=== PATIENT | female | born 1970 | race Caucasian/White ===

== ENCOUNTER 2018-11-28 07:16 | Inpatient (IN) ==
--- NOTE | 2018-11-28 07:45 | History & Physical Report ---
Date of Encounter: 11/28/18 Time of Encounter: 07:44 24 Hour HP Update - Instructions Instructions: If the History and Physical is less than 30 days old and was completed prior to A.M. admission and or procedure and has NOT been updated on calendar day of procedure please complete this update prior to performing procedure. - Update Patient reports changes in Medical Condition: No Changes in examination, assessment, or condition: No Changes in Medication: No Preop tests/diagnostics Reviewed: Yes Surgery Remains Indicated: Yes Consent for Planned Operative Procedure(s) Verified: Yes - Pre-Operative Checklist Preoperative Checklist Indicated: No Prophylactic Antibiotic Ordered: Yes Is VTE Prophylaxis Indicated?: Yes
[2018-11-28] MEDS ORDERED: Ondansetron 4 MG/2 ML VIAL ONE (08:06)
[2018-11-28] MEDS ORDERED: Lidocaine -MPF 2% 2 ML VIAL ONE (08:06)
[2018-11-28] MEDS ORDERED: Dexamethasone 4 MG/ML VIAL ONE ×2 (08:06→09:24)
[2018-11-28] MEDS ORDERED: *HR* Propofol 200 MG/20 ML VIAL IVP ONE ×2 (08:06→09:41)
[2018-11-28] MEDS ORDERED: *HR* FentaNYL (PF) 100 MCG/2 ML VIAL ONE ×3 (08:06→09:45)
[2018-11-28] MEDS ORDERED: *HR* Midazolam HCl 2 MG/2 ML VIAL ONE (08:06)
[2018-11-28] MEDS ORDERED: ROPIVACAINE/PF/NS SYRINGE INTRAART ONE (08:24)
[2018-11-28] MEDS ORDERED: Hydrocortisone Sodium Succ 100 MG/2 ML VIAL IVP ONE (08:26)
[2018-11-28] MEDS ORDERED: diazePAM 5 MG TABLET PO ONE ×2 (08:26→08:45)
[2018-11-28] MEDS ORDERED: traMADol 50 MG TABLET PO ONE (08:27)
[2018-11-28] MEDS ORDERED: *HR* OxyCODONE Immed Rel 5 MG TABLET PO ONE (08:28)
[2018-11-28] MEDS ORDERED: Ethanol\\Acetic Acid\\Na Ace\\Ben 1,000 ML IRRIG.SOLN IR ONE ×2 (08:34→08:39)
[2018-11-28] MEDS ORDERED: Albuterol 2.5 MG/3 ML NEBULIZER IH ONE (08:35)
[2018-11-28] MEDS ORDERED: Clindamycin 900 MG/50 ML 900 MG/50 ML IV.SOLN IVPB ONE (08:35)
--- NOTE | 2018-11-28 08:35 | Anesthesia Evaluation PreOp ---
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 08/24/17 [Rx] Calcium Carbonate/Vitamin D3 [Calcium 500 mg Chewable Tablet] 2 tab PO DAILY 08/24/17 [History] Folic Acid 1 mg PO DAILY 08/24/17 [History] Gabapentin [Neurontin] 800 mg PO TID 08/24/17 [History] Hydroxychloroquine [Plaquenuil] 200 mg PO BID 08/24/17 [History] Lansoprazole [Prevacid] 30 mg PO DAILY 08/24/17 [History] Naproxen 500 mg PO BID 08/24/17 [History] OxyCODONE/APAP 10/325 [Percocet 10/325 MG] 1 each PO Q6HR PRN 7 Days #28 tablet 08/24/17 [Rx] Oxycodone HCl/Acetaminophen [Percocet 10-325 mg Tablet] 1 tab PO Q6H PRN 08/24/17 [History] Sulfasalazine [Azulfidine] 500 mg PO TID 08/24/17 [History] Tizanidine HCl 4 mg PO TID PRN 08/24/17 [History] Vitamin E 1,000 unit PO DAILY 08/24/17 [History] Allergy/AdvReac Type Severity Reaction Status Date / Time abatacept [From Orencia] Allergy Nausea Verified 08/24/17 12:24 cephalexin Allergy Hives Verified 08/24/17 12:24 ibuprofen Allergy Vomiting Verified 08/24/17 12:24 nalbuphine [From Nubain] Allergy Nausea Verified 08/24/17 12:24 Penicillins Allergy Hives Verified 08/24/17 12:24 codeine AdvReac Vomiting Verified 08/24/17 12:24 - Meds/Allergy Pre-op Review Medications Reviewed: Yes Allergies Reviewed: Yes Beta Blockers on Current Med List: No Anesthesia Results - Labs Laboratory Tests 11/23/18 11/23/18 11/23/18 13:38 13:38 13:38 WBC 7.3 Hgb 12.0 Hct 37.2 Plt Count 310 PT 10.6 INR 0.9 APTT 41.2 H Sodium 137 Potassium 3.8 Chloride 105 Carbon Dioxide 28 BUN 7 Creatinine 0.52 L Est GFR ( Amer) > 60 Est GFR (Non-Af Amer) > 60 BUN/Creatinine Ratio 13 Glucose 78 Calculated Osmolality 281 Calcium 9.1 Serum , Qual 11/23/18 13:52 WBC Hgb Hct Plt Count PT INR APTT Sodium Potassium Chloride Carbon Dioxide BUN Creatinine Est GFR ( Amer) Est GFR (Non-Af Amer) BUN/Creatinine Ratio Glucose Calculated Osmolality Calcium Serum , Qual Negative Anesthesia Exam Last Vital Signs Temp 98.4 F 11/28/18 08:09 Pulse 105 11/28/18 08:09 Resp 18 11/28/18 08:09 BP 123/76 11/28/18 08:09 Pulse Ox 97 11/28/18 08:09 Weight: 102 kg NPO (# of Hours): > 8 hrs - HEENT Pupil (Motor): Pupils equal, EOMI Mallampati: III Teeth: Normal Oral Opening: Greater than 3 - BOOK REPAIRER LOC: Oriented - Cardiac Rhythm: Regular Murmur: None - Pulmonary Breath Sounds: bilateral Clear Respiratory Effort: Symmetrical Anesthesia Assess/Plan ASA Score: 3 Level of consciousness: Cooperative Anesthetic Plan: General, Regional Nerve Block Regional Nerve Block Plan: Adductor canal Reason for No Neuroaxial/Regional Block: Patient refusal (also patient with elevated PTT) Monitoring Plan: Standard Monitors Recovery Plan: PACU
[2018-11-28] MEDS ORDERED: *HR* OxyCODONE Immed Rel 5 MG TABLET ONE (08:44)
[2018-11-28] MEDS ORDERED: Hydrocortisone Sodium Succ 100 MG/2 ML VIAL ONE (08:45)
[2018-11-28] MEDS ORDERED: Ringers Solution, Lactated 1,000 ML IVC SCH (08:45)
[2018-11-28] MEDS ORDERED: traMADol 50 MG TABLET ONE (08:45)
[2018-11-28] MEDS ORDERED: Tranexamic Acid 1,000 MG/10 ML VIAL ONE (09:05)
[2018-11-28] MEDS ORDERED: *HR* Succinylcholine 200 MG/10 ML VIAL IVP ONE (09:06)
[2018-11-28] MEDS ORDERED: Lidocaine -MPF 4% 5 ML AMPUL ONE (09:07)
[2018-11-28] MEDS ORDERED: Ropivacaine/PF 0.5% 24.62 ML, EPINEPHrine 0.25 MG, Ketorolac 15 MG, Water for inj. (ste... IR ONE ×2 (09:20)
--- NOTE | 2018-11-28 10:54 | Orthopedic Operative Note ---
Date of procedure: 11/28/18 Pre-op diagnosis: Bilateral knee arthritis Post-op diagnosis: same Procedure: Procedure: Bilateral robotic-assisted Total knee replacement Estimated blood loss: 800 cc Hardware: Metal and polyethylene replacement. Barre Femur: 3 Tibia: 3 TS insert: 9 Patella: 33 Exam Under anesthesia: Left knee 14 degree flexion contracture 7 degree varus right knee 11 degree flexion contracture 5 degree varus as calculated by the robot full flexion and no instability Procedural Notes: Grade 3 arthritic changes all 3 compartments. Hypertrophic synovium bilateral Operative procedure: The patient was brought to the operating room and placed on the operating room table. After general anesthesia was administered the operative knee was examined. Findings were noted in the exam under anesthesia. The operative extremity was prepped and draped in sterile surgical fashion. The patient received IV antibiotics prior to skin incision. Surgery began with the left knee followed by the right knee. Any differences will be highlighted. A standard midline incision was made centered over the patella. The incision was made through the skin and subcutaneous tissue. A medial parapatellar tendon approach was performed. Care was taken to preserve tissue along the medial aspect of the patella. And to protect the patella tendon. The deep MCL was released off the medial tibia. The infra patella fat pad was excised. The patella was everted and cut was made at the level of the insertion of the quadriceps and patella tendon. The patella was sized the guide was seated and the lug holes are drilled. Knee was brought into flexion. Patient noted to have patient noted to have grade 3 arthritic changes all 3 compartments and hypertrophic synovium bilaterally. Steinmann pins were placed in the tibia and the femur for the tibial and femoral arrays respectively. Checkpoints were also placed in the tibia and the femur for calculation purposes. The knee including the femur and the tibial registered. Osteophytes, ACL and PCL were excised at this point. Extension and flexion were assessed with a valgus stress components were adjusted on the computer to balance the knee. Femoral cuts were made first with robotic assistance, these included the anterior cut posterior cuts chamfer cuts. Tibial cut was then performed with robotic assistance as well. Bone fragments were removed, as well as the medial and lateral meniscus. The size 3 femoral guide was seated box cut was made lug holes are drilled. The size 3 tibial tray was seated and prepared with the fin cutter. Trial reduction with the 9 TS Leonora revealed extension of 0 degree and 1 degree varus right knee 3 degrees varus left knee full flexion. No varus valgus instability. Trial reduction revealed excellent patella tracking. All trial components were removed all bony surfaces were irrigated. The Tibia was seated followed by the femur, The selected Leonora size was seated and secured patella. Patient had similar findings for motion and stability. The knee was closed by the PA. The knee was then irrigated out with 2 L of pulse irrigation. The extensor mechanism was closed with #2 FiberWire suture and #2 PDS suture. The subcutaneous tissue was then irrigated and closed deep with #1 PDS suture superficially with 0 PDS suture and skin was closed with zip tie The patient was then placed in a sterile dressing and a postoperative brace extubated and transferred to recovery room in stable condition. Anesthesia: GETA Surgeon: Herbert Deutsch Was there an catering administrative assistant present: Yes Hydro Operator: Evelina Gray Estimated blood loss (cc): 800 Condition: stable Disposition: PACU
[2018-11-28] MEDS ORDERED: *HR* HYDROMORPHONE 2 MG/ML VIAL ONE (11:07)
[2018-11-28] MEDS ORDERED: *HR* OxyCODONE Immed Rel 5 MG TABLET PO PRN ×2 (12:04→12:50)
[2018-11-28] MEDS ORDERED: *HR* FentaNYL (PF) 100 MCG/2 ML VIAL IVP PRN ×2 (12:04→12:50)
[2018-11-28] MEDS ORDERED: *HR* Promethazine 25 MG/ML VIAL IVP PRN (12:04)
[2018-11-28 12:06] LABS: Hematocrit 33.8 % (35.3-44.9); Hemoglobin 11.1 g/dL (11.5-15.4)
--- NOTE | 2018-11-28 12:15 | Anesthesia Evaluation Post Op ---
Date of Encounter: 11/28/18 Time of Encounter: 12:15 - Vital Signs Vital Signs: Last Vital Signs Temp 97.4 F L 11/28/18 11:32 Pulse 85 11/28/18 11:52 Resp 14 11/28/18 11:52 BP 135/92 11/28/18 11:52 Pulse Ox 100 11/28/18 11:52 - Lungs Lungs: Clear Ascult./Percussion - Airway Airway: Non-obstructed - Cardiovascular Regular Rate - Mental Status Mental Status: Alert & Oriented, Answers Appropriately - Pain Pain Scale: 2 - Nausea Vomiting Nausea Vomiting: Not Present - Hydration Hydration: NPO - Discharge PostOp Status: Transfer Patient to floor
[2018-11-28] MEDS ORDERED: Sennosides 8.6 MG TABLET PO PRN (12:50)
[2018-11-28] MEDS ORDERED: MOM Conc 10 ML UD.LIQ PO PRN (12:50)
[2018-11-28] MEDS ORDERED: Clindamycin 900 MG/50 ML 900 MG/50 ML IV.SOLN IVPB SCH (12:50)
[2018-11-28] MEDS ORDERED: traMADol 50 MG TABLET PO PRN (12:50)
[2018-11-28] MEDS ORDERED: Naloxone 0.4 MG/ML INJ IVP PRN (12:50)
[2018-11-28] MEDS: Ascorbic Acid 500 MG TABLET PO SCH ×2 (13:37→16:23)
[2018-11-28] MEDS: Multivit/Ca/Min/Fe/FA 1 TAB TABLET PO SCH (15:56)
[2018-11-28] MEDS: *HR* OxyCODONE Immed Rel 5 MG TABLET PO PRN (16:22)
[2018-11-28] MEDS: ALPRAZolam 1 MG TABLET PO SCH ×2 (16:22→20:34)
[2018-11-28] MEDS: Gabapentin 400 MG CAPSULE PO SCH ×2 (16:22→20:33)
[2018-11-28] MEDS: Clindamycin 900 MG/50 ML 900 MG/50 ML IV.SOLN IVPB SCH (16:23)
[2018-11-28] MEDS: *HR* Enoxaparin 30 MG/0.3 ML SYRINGE SQ SCH (18:53)
[2018-11-28] MEDS: *HR* Promethazine 25 MG/ML VIAL IVP PRN (18:57)
[2018-11-28] MEDS: Ondansetron 4 MG/2 ML VIAL IVP PRN (20:33)
--- NOTE | 2018-11-28 21:56 | Discharge Summary ---
<Evelina Chinchilla - Last Filed: 12/01/18 14:03> Orders not resulted at time of discharge: Pending orders 11/28/18 08:33 US anesthesia pain block [US] Stat 11/28/18 11:02 Surgical Pathology [PTH] Routine 11/28/18 20:37 EKG [ECG 12 lead ECG] [ECG] Stat 11/29/18 04:00 Basic Metabolic Panel DAILY Complete Blood Count [HEME] DAILY 11/30/18 04:00 Basic Metabolic Panel DAILY Complete Blood Count [HEME] DAILY Date of Encounter: 12/01/18 Time of Encounter: 12:20 - Discharge Diagnosis (1) Status post total bilateral knee replacement Priority: Primary Status: Acute (2) Osteoarthritis of knees, bilateral Priority: Primary Status: Chronic Qualifiers: Osteoarthritis type: primary Qualified Code(s): M17.0 - Bilateral primary osteoarthritis of knee (3) Rheumatoid arthritis Priority: Secondary Status: Chronic Qualifiers: Rheumatoid arthritis location: unspecified site Rheumatoid factor presence: with rheumatoid factor Qualified Code(s): M05.9 - Rheumatoid arthritis with rheumatoid factor, unspecified (4) GERD (gastroesophageal reflux disease) Priority: Secondary Status: Chronic Qualifiers: Esophagitis presence: esophagitis presence not specified Qualified Code(s): K21.9 - Gastro-esophageal reflux disease without esophagitis (5) Depression with anxiety Priority: Secondary Status: Chronic (6) History of seizures Priority: Secondary Status: Chronic (7) Recently quit using tobacco Priority: Secondary Status: Acute (8) Obesity (BMI 30-39.9) Priority: Secondary Status: Chronic (9) Acute blood loss anemia Priority: Secondary Status: Acute - Hospital Course Hospital course: Ms. Beverly is a 48 year old female status post Bilateral robotic-assisted Total knee replacement 11/28/18 with medical history of OA, RA, recent tobacco use, depression/anxiety, GERD and history of seizures. - Time Spent with Patient Total time spent providing and/or coordinating discharge services: - Discharge Medications Prescriptions: New Aspirin Enteric Coated [Aspirin EC] 325 mg PO BID 10 Days #20 tablet. Docusate Sodium [Colace] 100 mg PO BID 5 Days #10 capsule OxyCODONE Immed Rel [Roxicodone 5 MG] 5 mg PO Q6HR PRN 5 Days #20 tablet PRN Reason: Severe Pain No Action Folic Acid 1 mg PO DAILY Calcium Carbonate/Vitamin D3 [Calcium 500 mg Chewable Tablet] 2 tab PO DAILY ALPRAZolam [Xanax 1 MG Tablet] 1 mg PO TID Tizanidine HCl 4 mg PO TID PRN PRN Reason: Muscle Spasm Sulfasalazine [Azulfidine] 500 mg PO DAILY Gabapentin [Neurontin] 800 mg PO TID Cyanocobalamin (B-12) [Vitamin B12] 1,000 mcg PO QWEEK Diphenoxylate/Atropine [Lomotil 2.5 mg/0.025 mg] 1 tab PO BID PRN PRN Reason: Diarrhea Ergocalciferol (VITAMIN D2) [Vitamin D2] 2,000 units PO DAILY Ibuprofen [Ibu] 800 mg PO TID InFLIXimab [Remicade] 100 mg PO QMONTH Promethazine [Phenergan] 25 mg PO TID raNITIdine HCl [Ranitidine HCl] 150 mg PO BID SUMAtriptan Succinate [Sumavel Dosepro] 6 mg SQ PRN PRN PRN Reason: Migraine Headache Temazepam [Restoril] 30 mg PO HS PRN PRN Reason: Sleep Home Medications: ALPRAZolam [Xanax 1 MG Tablet] 1 mg PO TID 08/24/17 [History] Calcium Carbonate/Vitamin D3 [Calcium 500 mg Chewable Tablet] 2 tab PO DAILY 08/24/17 [History] Folic Acid 1 mg PO DAILY 08/24/17 [History] Gabapentin [Neurontin] 800 mg PO TID 08/24/17 [History] Sulfasalazine [Azulfidine] 500 mg PO DAILY 08/24/17 [History] Tizanidine HCl 4 mg PO TID PRN 08/24/17 [History] Cyanocobalamin (B-12) [Vitamin B12] 1,000 mcg PO QWEEK 11/28/18 [History] Diphenoxylate/Atropine [Lomotil 2.5 mg/0.025 mg] 1 tab PO BID PRN 11/28/18 [History] Ergocalciferol (VITAMIN D2) [Vitamin D2] 2,000 units PO DAILY 11/28/18 [History] Ibuprofen [Ibu] 800 mg PO TID 11/28/18 [History] InFLIXimab [Remicade] 100 mg PO QMONTH 11/28/18 [History] Promethazine [Phenergan] 25 mg PO TID 11/28/18 [History] SUMAtriptan Succinate [Sumavel Dosepro] 6 mg SQ PRN PRN 11/28/18 [History] Temazepam [Restoril] 30 mg PO HS PRN 11/28/18 [History] raNITIdine HCl [Ranitidine HCl] 150 mg PO BID 11/28/18 [History] Aspirin Enteric Coated [Aspirin EC] 325 mg PO BID 10 Days #20 tablet.dr 11/29/18 [Rx] Docusate Sodium [Colace] 100 mg PO BID 5 Days #10 capsule 11/29/18 [Rx] OxyCODONE Immed Rel [Roxicodone 5 MG] 5 mg PO Q6HR PRN 5 Days #20 tablet 11/29/18 [Rx] Allergies/Adverse Reactions: Allergy/AdvReac Type Severity Reaction Status Date / Time abatacept [From Orencia] Allergy Nausea Verified 11/28/18 08:45 acetaminophen Allergy Hives Verified 11/28/18 08:45 [From Darvocet-N 100] cefixime Allergy Rash Verified 11/28/18 08:45 cephalexin Allergy Hives Verified 11/28/18 08:45 ibuprofen Allergy Vomiting Verified 11/28/18 08:45 nalbuphine [From Nubain] Allergy Nausea Verified 11/28/18 08:45 Penicillins Allergy Hives Verified 11/28/18 08:45 propoxyphene Allergy Hives Verified 11/28/18 08:45 [From Darvocet-N 100] codeine AdvReac Vomiting Verified 11/28/18 08:45 Date of admission: 11/28/18 Primary care physician: Temo Smith Consults: 11/28/18 12:50 Consult to Nutrition [CONS] Routine Comment: Consulting Provider: NUTRITION Reason for Dietary Consult: Other Other:: Proper nutrition to facilitate wound healing Consult to Occupational Therapy [CONS] Routine Comment: Evaluate, develop and implement POC Reason for Consult: post knee surgery Does patient have active BEDREST order?: No Is patient medically & hemodynamically stable?: Yes Consult to Orthopedic Navigator [CONS] [CONS] Routine Consult to Physical Therapy [CONS] Routine Comment: Evaluate, develop and impliment POC Reason for Consult: post knee surgery Does patient have active BEDREST order?: No Is patient medically & hemodynamically stable?: Yes Consult to Animal Care Supervisor [CONS] Routine Reason for SW Consult: post op joint replacement RT Post Op Consult [CONS] Routine Discharging clinician: Herbert Deutsch Labs on day of discharge: Labs from last 24 hours 11/28/18 11/28/18 11:55 11:55 Hgb 11.1 L Hct 33.8 L APTT 40.5 H - Impressions ITS Impressions Knee X-Ray 11/28/18 01:00 IMPRESSION: Bilateral total knee arthroplasties without acute hardware complication. Expected postsurgical changes. D/ / Lucius Abdi MD / Lucius Abdi MD Interpreting Provider: Lucius Abdi MD - Patient Status Disposition: Transfer SNF Condition: Good Functional capacity at discharge: uses cane/walker Overall status at discharge: patient is back to baseline - Discharge Instructions Follow Up With: Temo Smith DO [Primary Care Provider] - - Diet and Activity Activity: ambulate only with your walker, as per physical therapy Diet: advance to your usual diet <Evelina Gray - Last Filed: 12/02/18 11:55> Orders not resulted at time of discharge: Pending orders 11/28/18 08:33 US anesthesia pain block [US] Stat 12/02/18 11:49 Hemoglobin and Hematocrit [HEME] Stat Date of Encounter: 12/02/18 - Hospital Course Hospital course: Ms. Beverly is a 48 year old female - Time Spent with Patient Total time spent providing and/or coordinating discharge services: Date of admission: 11/29/18 22:56 Primary care physician: Temo Smith Consults: 11/28/18 12:50 Consult to Nutrition [CONS] Routine Comment: Consulting Provider: NUTRITION Reason for Dietary Consult: Other Other:: Proper nutrition to facilitate wound healing Consult to Occupational Therapy [CONS] Routine Comment: Evaluate, develop and implement POC Reason for Consult: post knee surgery Does patient have active BEDREST order?: No Is patient medically & hemodynamically stable?: Yes Consult to Orthopedic Navigator [CONS] [CONS] Routine Consult to Physical Therapy [CONS] Routine Comment: Evaluate, develop and impliment POC Reason for Consult: post knee surgery Does patient have active BEDREST order?: No Is patient medically & hemodynamically stable?: Yes Consult to Animal Care Supervisor [CONS] Routine Reason for SW Consult: post op joint replacement RT Post Op Consult [CONS] Routine Labs on day of discharge: Labs from last 24 hours 12/02/18 02:43 Hgb 8.7 L Hct 26.2 L - Impressions ITS Impressions Knee X-Ray 11/28/18 01:00
--- NOTE | 2018-11-28 22:07 | Physician Discharge Referral ---
Home Health/Hosp Referral Info Transfer to: Home Health Attending Provider: Dr Deutsch - Diagnosis (1) Status post total bilateral knee replacement Priority: Primary Status: Acute (2) Osteoarthritis of knees, bilateral Priority: Primary Status: Chronic (3) Rheumatoid arthritis Priority: Secondary Status: Chronic (4) GERD (gastroesophageal reflux disease) Priority: Secondary Status: Chronic (5) Depression with anxiety Priority: Secondary Status: Chronic (6) History of seizures Priority: Secondary Status: Chronic (7) Recently quit using tobacco Priority: Secondary Status: Acute (8) Obesity (BMI 30-39.9) Priority: Secondary Status: Chronic - Respiratory Orders None Smoking Cessation: Smoking cessation has been advised. For more information, call the [place] Tobacco Quit Line at 9-350-NDKI-NOW. - Diet/Nutrition Diet/Nutrition Orders: Regular - Activity Activity Orders: Up ad kesha, Ambulate, Chair, Walker - Services Needed Following services are medically necessary services: Nursing, Home Health Aide, Physical Therapy, Occupational Therapy Home Care Orders: Opsite dressing, leave intact until first post-operative visit. If dressing becomes >50% saturated, contact office, remove dressing and place appropriate dressing in its place. Do not allow for dressing to get wet. Zipline/Chichi in place, plan to remove at post-operative day #14-16. Total Joint Precautions x 6 weeks Apply cold therapy wrap 3-6x/day for 20 minutes at a time. Encourage ambulation throughout the day Use Incentive spirometer 10x/hour. Elevate affected extremity above heart as tolerated. Brace: Wear knee immobilizer at night x 2 weeks. - Transfer Medications Prescriptions: Aspirin Enteric Coated [Aspirin EC] 325 mg PO BID 10 Days #20 tablet. Docusate Sodium [Colace] 100 mg PO BID 5 Days #10 capsule OxyCODONE Immed Rel [Roxicodone 5 MG] 5 mg PO Q6HR PRN 5 Days #20 tablet PRN Reason: Severe Pain Home Medications: ALPRAZolam [Xanax 1 MG Tablet] 1 mg PO TID 08/24/17 [History] Calcium Carbonate/Vitamin D3 [Calcium 500 mg Chewable Tablet] 2 tab PO DAILY [History] Folic Acid 1 mg PO DAILY 08/24/17 [History] Gabapentin [Neurontin] 800 mg PO TID 08/24/17 [History] Sulfasalazine [Azulfidine] 500 mg PO DAILY 08/24/17 [History] Tizanidine HCl 4 mg PO TID PRN 08/24/17 [History] Aspirin Enteric Coated [Aspirin EC] 325 mg PO BID 10 Days #20 tablet. 11/28/18 [Rx] Cyanocobalamin (B-12) [Vitamin B12] 1,000 mcg PO QWEEK 11/28/18 [History] Diphenoxylate/Atropine [Lomotil 2.5 mg/0.025 mg] 1 tab PO BID PRN 11/28/18 [History] Docusate Sodium [Colace] 100 mg PO BID 5 Days #10 capsule 11/28/18 [Rx] Ergocalciferol (VITAMIN D2) [Vitamin D2] 2,000 units PO DAILY 11/28/18 [History] Ibuprofen [Ibu] 800 mg PO TID 11/28/18 [History] InFLIXimab [Remicade] 100 mg PO QMONTH 11/28/18 [History] OxyCODONE Immed Rel [Roxicodone 5 MG] 5 mg PO Q6HR PRN 5 Days #20 tablet 11/28/18 [Rx] Promethazine [Phenergan] 25 mg PO TID 11/28/18 [History] SUMAtriptan Succinate [Sumavel Dosepro] 6 mg SQ PRN PRN 11/28/18 [History] Temazepam [Restoril] 30 mg PO HS PRN 11/28/18 [History] raNITIdine HCl [Ranitidine HCl] 150 mg PO BID 11/28/18 [History] Allergies/Adverse Reactions: Allergy/AdvReac Type Severity Reaction Status Date / Time abatacept [From Orencia] Allergy Nausea Verified 11/28/18 08:45 acetaminophen Allergy Hives Verified 11/28/18 08:45 [From Darvocet-N 100] cefixime Allergy Rash Verified 11/28/18 08:45 cephalexin Allergy Hives Verified 11/28/18 08:45 ibuprofen Allergy Vomiting Verified 11/28/18 08:45 nalbuphine [From Nubain] Allergy Nausea Verified 11/28/18 08:45 Penicillins Allergy Hives Verified 11/28/18 08:45 propoxyphene Allergy Hives Verified 11/28/18 08:45 [From Darvocet-N 100] codeine AdvReac Vomiting Verified 11/28/18 08:45 Certification: Further, I certify that my clinical findings support that this patient is homebound (i.e. absences from home require considerable and taxing effort and are for medical reasons or scientology services or infrequently or short duration when for other reasons) because: Homebound Reason: Post-surgery restriction and or conditions limit ability to leave home Attestation: My signature below is to certify that this patient is under my care and that I, or nurse practitioner, or a physician surgeon assistant working with me, has a [id number] encounter with this patient.
[2018-11-29] MEDS: *HR* OxyCODONE Immed Rel 5 MG TABLET PO PRN ×6 (00:18→22:52)
[2018-11-29] MEDS: Clindamycin 900 MG/50 ML 900 MG/50 ML IV.SOLN IVPB SCH (00:18)
[2018-11-29] MEDS: Ringers Solution, Lactated 1,000 ML IVC SCH (00:19)
[2018-11-29] MEDS: *HR* Enoxaparin 30 MG/0.3 ML SYRINGE SQ SCH ×2 (04:52→18:26)
--- NOTE | 2018-11-29 06:40 | Orthopedics Progress Note ---
Date of Encounter: 11/29/18 Time of Encounter: 06:40 Subjective Interval history: Patient was seen this morning doing well without complaints. Afebrile vital signs stable. Operative extremity: Neurovascularly intact Dressing clean dry and intact Calves nontender Assessment and plan: Continue with postoperative care Postop hematocrit 33 Objective Vital signs: Vital Signs Temp Pulse Resp BP Pulse Ox 11/29/18 04:40 97.9 F 111 17 116/69 93 11/28/18 23:43 99.1 F 101 16 115/79 97 11/28/18 20:02 99.3 F 104 16 129/80 96 11/28/18 15:45 98.8 F 95 15 139/83 100 11/28/18 13:15 98.2 F 95 15 146/76 99 11/28/18 12:53 97.6 F 91 16 135/88 98 11/28/18 12:22 97.2 F L 93 16 155/78 99 11/28/18 12:12 97.2 F L 87 13 143/95 100 11/28/18 12:02 97.2 F L 88 12 137/72 99 11/28/18 11:52 85 14 135/92 100 11/28/18 11:42 85 14 142/97 100 11/28/18 11:32 97.4 F L 92 14 140/87 100 11/28/18 08:09 98.4 F 105 18 123/76 97 11/28/18 07:41 98.4 F 105 18 123/76 97 Intake and Output 11/28/18 11/28/18 11/29/18 15:59 23:59 07:59 Intake Total 350 / 640 290 / 640 Output Total 1950 / 2650 700 / 2650 1050 / 1050 Balance -1600 / -2009 -410 / -2009 -1050 / -1050 Intake: IV Fluids 50 / 100 50 / 100 Cleocin Premix 900 MG/50 ML 900 50 / 100 50 / 100 mg In 50 ml @ 50 mls/hr IVPB Q8HR [facility] Rx#:[id number] Oral 300 / 540 240 / 540 Output: Urine 350 / 1050 700 / 1050 1050 / 1050 Estimated Blood Loss 1600 / 1600 Other: Meal Dinner Percent of Meal Consumed 100% Weight 102.058 kg - Labs CBC & BMP: 11/28/18 11:55 Labs: Abnormal lab results Hgb 11.1 g/dL (11.5-15.4) L 11/28/18 11:55 Hct 33.8 % (35.3-44.9) L 11/28/18 11:55 APTT 40.5 Seconds (26.0-36.0) H 11/28/18 11:55 Consult Discharge Plan - Plan Referrals: Temo Smith DO [Primary Care Provider] - Prescriptions: Aspirin Enteric Coated [Aspirin EC] 325 mg PO BID 10 Days #20 tablet. Docusate Sodium [Colace] 100 mg PO BID 5 Days #10 capsule OxyCODONE Immed Rel [Roxicodone 5 MG] 5 mg PO Q6HR PRN 5 Days #20 tablet PRN Reason: Severe Pain
[2018-11-29 07:40] LABS: Basophils % 0.1 %; Hematocrit 28.5 % (35.3-44.9); Immature Granulocytes % 0.2 % (0-4); Lymphocytes # 2.3 K/mcL (0.6-4.6); Lymphocytes % 17.2 %; Mean Corpuscular HGB Conc 32.6 g/dL (31.6-35.5); Mean Corpuscular Hemoglobin 32.5 pg (28.0-33.3); Mean Corpuscular Volume 99.7 fL (83.0-100.0); Mean Platelet Volume 10.5 fL (9.4-12.4); Monocytes # 1.5 K/mcL (0.0-1.3); Monocytes % 11.2 %; Neutrophils # 9.6 K/mcL (1.6-8.9); Platelet Count 284 K/mcL (140-400); Red Blood Count 2.86 M/mcL (3.82-4.97); Red Cell Distribution Width 13.4 % (11.5-14.5); Segmented Neutrophils % 71.3 %
[2018-11-29 07:41] LABS: Hemoglobin 9.3 g/dL (11.5-15.4)
[2018-11-29 08:09] LABS: BUN/Creatinine Ratio 13 (6-26); Blood Urea Nitrogen 6 mg/dL (6-20); Calcium 9.2 mg/dL (8.6-10.3); Carbon Dioxide 25 mEq/L (23-29); Chloride 101 mEq/L (98-107); Glucose 139 mg/dL (70-105); Osmolality,Calculated 282 (280-300); Potassium 4.2 mEq/L (3.5-5.1); Sodium 136 mEq/L (136-145); eGFR For Non-African Americans > 60 (> 60)
[2018-11-29] MEDS: ALPRAZolam 1 MG TABLET PO SCH ×3 (08:45→20:40)
[2018-11-29] MEDS: Famotidine 20 MG TABLET PO SCH ×2 (08:45→20:40)
[2018-11-29] MEDS: sulfaSALAzine 500 MG TABLET PO SCH (08:46)
[2018-11-29] MEDS: Ketorolac 30 MG/ML VIAL IVP PRN ×2 (08:46→20:40)
[2018-11-29] MEDS: Folic Acid 1 MG TABLET PO SCH (08:46)
[2018-11-29] MEDS: Cholecalciferol (D-3) 1,000 UNIT TABLET PO SCH (08:46)
[2018-11-29] MEDS: Ascorbic Acid 500 MG TABLET PO SCH ×2 (08:46→18:26)
[2018-11-29] MEDS: Gabapentin 400 MG CAPSULE PO SCH ×3 (08:46→20:40)
[2018-11-29] MEDS: Multivit/Ca/Min/Fe/FA 1 TAB TABLET PO SCH (08:46)
[2018-11-29] MEDS ORDERED: NON-FORMULARY MEDICATION 1 EACH EACH (Calcium Carbonate/Vitamin D3 [Calcium 500 Mg Chewabl PO SCH (09:00)
--- NOTE | 2018-11-29 15:52 | Physician Discharge Referral ---
ExtendedCare Referral Info Transfer To: F Provider in Charge: Deutsch - Diagnosis (1) Status post total bilateral knee replacement Priority: Primary Status: Acute (2) Osteoarthritis of knees, bilateral Priority: Primary Status: Chronic (3) Rheumatoid arthritis Priority: Secondary Status: Chronic (4) GERD (gastroesophageal reflux disease) Priority: Secondary Status: Chronic (5) Depression with anxiety Priority: Secondary Status: Chronic (6) History of seizures Priority: Secondary Status: Chronic (7) Recently quit using tobacco Priority: Secondary Status: Acute (8) Obesity (BMI 30-39.9) Priority: Secondary Status: Chronic (9) Acute blood loss anemia Priority: Secondary Status: Acute Expected Duration of Placement: <30 days Prognosis: Good Aware of Diagnosis: Patient Aware of Prognosis: Patient - Transfer Medications Home Medications: ALPRAZolam [Xanax 1 MG Tablet] 1 mg PO TID 08/24/17 [History] Calcium Carbonate/Vitamin D3 [Calcium 500 mg Chewable Tablet] 2 tab PO DAILY 08/24/17 [History] Folic Acid 1 mg PO DAILY 08/24/17 [History] Gabapentin [Neurontin] 800 mg PO TID 08/24/17 [History] Sulfasalazine [Azulfidine] 500 mg PO DAILY 08/24/17 [History] Tizanidine HCl 4 mg PO TID PRN 08/24/17 [History] Cyanocobalamin (B-12) [Vitamin B12] 1,000 mcg PO QWEEK 11/28/18 [History] Diphenoxylate/Atropine [Lomotil 2.5 mg/0.025 mg] 1 tab PO BID PRN 11/28/18 [History] Ergocalciferol (VITAMIN D2) [Vitamin D2] 2,000 units PO DAILY 11/28/18 [History] Ibuprofen [Ibu] 800 mg PO TID 11/28/18 [History] InFLIXimab [Remicade] 100 mg PO QMONTH 11/28/18 [History] Promethazine [Phenergan] 25 mg PO TID 11/28/18 [History] SUMAtriptan Succinate [Sumavel Dosepro] 6 mg SQ PRN PRN 11/28/18 [History] Temazepam [Restoril] 30 mg PO HS PRN 11/28/18 [History] raNITIdine HCl [Ranitidine HCl] 150 mg PO BID 11/28/18 [History] Aspirin Enteric Coated [Aspirin EC] 325 mg PO BID 10 Days #20 tablet. 11/29/18 [Rx] Docusate Sodium [Colace] 100 mg PO BID 5 Days #10 capsule 11/29/18 [Rx] OxyCODONE Immed Rel [Roxicodone 5 MG] 5 mg PO Q6HR PRN 5 Days #20 tablet 11/29/18 [Rx] Allergies/Adverse Reactions: Allergy/AdvReac Type Severity Reaction Status Date / Time abatacept [From Orencia] Allergy Nausea Verified 11/28/18 08:45 acetaminophen Allergy Hives Verified 11/28/18 08:45 [From Darvocet-N 100] cefixime Allergy Rash Verified 11/28/18 08:45 cephalexin Allergy Hives Verified 11/28/18 08:45 ibuprofen Allergy Vomiting Verified 11/28/18 08:45 nalbuphine [From Nubain] Allergy Nausea Verified 11/28/18 08:45 Penicillins Allergy Hives Verified 11/28/18 08:45 propoxyphene Allergy Hives Verified 11/28/18 08:45 [From Darvocet-N 100] codeine AdvReac Vomiting Verified 11/28/18 08:45 - Respiratory Orders None Smoking Cessation: Smoking cessation has been advised. For more information, call the [place] Tobacco Quit Line at 2-699-BIUN-NOW. - Ancillary Orders May use pressure relief devices daily prn, May go on STEPHEN w/family/respon democrat w/meds at nurse discretion PRN, May consult with Dentist, Dispensary Clerk, Director Data Analytics PRN - Advance Directives Code Status: Full Code - Mobility Orders Chair, Ambulate - Rehabiliation Orders Rehab Potential: Good Rehab Orders: ROM Exercises, Evaluation for Physical Therapy, Evaluation for Occupational Therapy Other: Opsite dressing, leave intact until first post-operative visit. If dressing becomes >50% saturated, contact office, remove dressing and place appropriate dressing in its place. Do not allow for dressing to get wet. Zipline/[place] in place, plan to remove at post-operative day #14-16. Total Joint Precautions x 6 weeks Apply cold therapy wrap 3-6x/day for 20 minutes at a time. Encourage ambulation throughout the day Use Incentive spirometer 10x/hour. Elevate affected extremity above heart as tolerated. Brace: Wear knee immobilizer at night x 2 weeks. - Treatments Skin tear care topically daily PRN per policy - Diet Orders Regular CERTIFICATION: I certify that the transfer of the above named patient to an Extended Care Facility is necessary for the continuing treatment of the diagnosis listed. The above information is true and accurate reflection of patient's current condition. Confidential - Redisclosure prohibited without a patient's written consent.
--- NOTE | 2018-11-29 15:54 | Event Note ---
Date of Encounter: 11/29/18 Time of Encounter: 12:10 PCR - POD#1 s/p B/L TKR robotic 11/28/18 Patient seen at bedside, without complaints. A&O x 3 Afebrile, vital signs stable. dressings had no bleeding visible. no calf tenderness to palpation, good dorsiflexion of foot, sensation intact distally. Labs reviewed. H/H - 9.3/28.5 stable, asymptomatic Pain control: adequate Participating in PT. All questions and concerns addressed. Educated on use of incentive spirometer. Encouraged ambulation and proper hydration. Patient educated on post-operative restrictions and post-operative care. Assessment and plan: Continue with postoperative care Discharge plan: therapy recommending ECF and patient agreeable to this, pending auth
[2018-11-29] MEDS: Temazepam 15 MG CAPSULE PO PRN (23:37)
[2018-11-30 05:07] LABS: Basophils % 0.3 %; Eosinophils # 0.2 K/mcL (0.0-0.6); Eosinophils % 1.6 %; Hematocrit 21.9 % (35.3-44.9); Immature Granulocytes % 0.3 % (0-4); Lymphocytes # 3.7 K/mcL (0.6-4.6); Mean Corpuscular HGB Conc 32.9 g/dL (31.6-35.5); Mean Corpuscular Hemoglobin 32.6 pg (28.0-33.3); Mean Corpuscular Volume 99.1 fL (83.0-100.0); Mean Platelet Volume 10.3 fL (9.4-12.4); Monocytes # 1.3 K/mcL (0.0-1.3); Monocytes % 11.1 %; Neutrophils # 6.4 K/mcL (1.6-8.9); Platelet Count 232 K/mcL (140-400); Red Blood Count 2.21 M/mcL (3.82-4.97); Red Cell Distribution Width 13.2 % (11.5-14.5); Segmented Neutrophils % 54.7 %
[2018-11-30 05:10] LABS: Hemoglobin 7.2 g/dL (11.5-15.4)
[2018-11-30 05:23] LABS: BUN/Creatinine Ratio 20 (6-26); Blood Urea Nitrogen 12 mg/dL (6-20); Carbon Dioxide 31 mEq/L (23-29); Chloride 96 mEq/L (98-107); Glucose 108 mg/dL (70-105); Potassium 3.6 mEq/L (3.5-5.1); Sodium 133 mEq/L (136-145); eGFR For Non-African Americans > 60 (> 60)
[2018-11-30 05:24] LABS: Calcium 9.1 mg/dL (8.6-10.3); Osmolality,Calculated 276 (280-300)
[2018-11-30] MEDS: *HR* Enoxaparin 30 MG/0.3 ML SYRINGE SQ SCH ×2 (05:29→20:31)
[2018-11-30] MEDS: *HR* OxyCODONE Immed Rel 5 MG TABLET PO PRN ×4 (05:29→22:44)
--- NOTE | 2018-11-30 06:39 | Orthopedics Progress Note ---
Date of Encounter: 11/30/18 Time of Encounter: 06:38 - Assessment and Plan (1) Acute blood loss anemia Current Visit: Yes Status: Acute Subjective Interval history: Patient was seen this morning doing well without complaints. Afebrile vital signs stable. Operative extremity: Neurovascularly intact Dressing clean dry and intact Calves nontender Assessment and plan: Continue with postoperative care Hemoglobin 7.2 transfuse 2 units Objective Vital signs: Vital Signs Temp Pulse Resp BP Pulse Ox 11/29/18 23:35 98.1 F 112 18 93/59 99 11/29/18 19:19 99.1 F 114 17 106/75 96 11/29/18 15:50 98.1 F 112 18 112/62 99 11/29/18 10:42 98.2 F 61 15 122/80 97 11/29/18 07:14 99.1 F 105 17 116/79 97 Intake and Output 11/29/18 11/29/18 11/30/18 15:59 23:59 07:59 Intake Total 240 / 240 Output Total 200 / 1250 Balance 40 / -1010 Intake: Oral 240 / 240 Output: Urine 200 / 1250 Other: Meal Lunch Dinner Percent of Meal Consumed 90% 70% Stool Size Large Stool Consistency formed Stool Color Brown # Voids 1 1 Weight 102 kg - Labs CBC & BMP: 11/30/18 04:16 11/30/18 04:16 Labs: Abnormal lab results WBC 11.7 K/mcL (4.3-11.1) H 11/30/18 04:16 RBC 2.21 M/mcL (3.82-4.97) L 11/30/18 04:16 Hgb 7.2 g/dL (11.5-15.4) L D 11/30/18 04:16 Hct 21.9 % (35.3-44.9) L 11/30/18 04:16 9.6 K/mcL (1.6-8.9) H 11/29/18 06:34 1.5 K/mcL (0.0-1.3) H 11/29/18 06:34 APTT 40.5 Seconds (26.0-36.0) H 11/28/18 11:55 Sodium 133 mEq/L (136-145) L 11/30/18 04:16 Chloride 96 mEq/L (98-107) L 11/30/18 04:16 Carbon Dioxide 31 mEq/L (23-29) H 11/30/18 04:16 0.59 mg/dL (0.60-1.20) L 11/30/18 04:16 Glucose 108 mg/dL (70-105) H 11/30/18 04:16 276 (280-300) L 11/30/18 04:16 Consult Discharge Plan - Plan Referrals: Temo Smith, [Primary Care Provider] -
[2018-11-30] MEDS: Multivit/Ca/Min/Fe/FA 1 TAB TABLET PO SCH (07:54)
[2018-11-30] MEDS: ALPRAZolam 1 MG TABLET PO SCH ×3 (07:54→20:41)
[2018-11-30] MEDS: Famotidine 20 MG TABLET PO SCH ×2 (07:55→20:41)
[2018-11-30] MEDS: sulfaSALAzine 500 MG TABLET PO SCH (07:55)
[2018-11-30] MEDS: Cholecalciferol (D-3) 1,000 UNIT TABLET PO SCH (07:56)
[2018-11-30] MEDS: Gabapentin 400 MG CAPSULE PO SCH ×3 (07:56→20:41)
[2018-11-30] MEDS: Folic Acid 1 MG TABLET PO SCH (07:56)
[2018-11-30] MEDS: Ascorbic Acid 500 MG TABLET PO SCH ×2 (07:56→15:38)
[2018-11-30] MEDS: Ketorolac 30 MG/ML VIAL IVP PRN (07:56)
[2018-11-30] MEDS: Acetaminophen IV 1,000 MG/100 ML INFUS..BTL IVPB PRN (13:15)
[2018-11-30] MEDS ORDERED: 0.9 % Sodium Chloride 250 ML ONE (13:16)
--- NOTE | 2018-11-30 14:45 | Event Note ---
Date of Encounter: 11/30/18 Time of Encounter: 12:10 PCR - POD#2 s/p B/L TKR robotic 11/28/18 Patient seen at bedside, without complaints other than feels a little more tired today. A&O x 3 Afebrile, vital signs stable. dressings had minimal bleeding visible. no calf tenderness to palpation, good dorsiflexion of foot, sensation intact distally. Labs reviewed. H/H - 7.2/21.9 - receiving 2 units RBC transfusion today Pain control: adequate Participating in PT. All questions and concerns addressed. Educated on use of incentive spirometer. Encouraged ambulation and proper hydration. Patient educated on post-operative restrictions and post-operative care. Assessment and plan: Continue with postoperative care Discharge plan: therapy recommending ECF and patient agreeable to this, pending auth
[2018-11-30] MEDS: HYDROcodone BIT/Homatropine 5 MG TABLET PO PRN (15:38)
[2018-11-30] MEDS ORDERED: Ondansetron ODT 4 MG TAB.RAPDIS SL ONE (17:37)
[2018-11-30] MEDS: Temazepam 15 MG CAPSULE PO PRN (22:44)
[2018-12-01] MEDS: *HR* Promethazine 25 MG/ML VIAL IVP PRN (01:42)
[2018-12-01] MEDS ORDERED: 0.9 % Sodium Chloride 250 ML ONE (01:58)
--- NOTE | 2018-12-01 06:38 | Orthopedics Progress Note ---
Date of Encounter: 12/01/18 Time of Encounter: 06:38 - Assessment and Plan (1) Acute blood loss anemia Current Visit: Yes Status: Acute Subjective Interval history: Patient was seen this morning doing well without complaints. Afebrile vital signs stable. Operative extremity: Neurovascularly intact Dressing clean dry and intact Calves nontender Assessment and plan: Continue with postoperative care H&H pending Objective Vital signs: Vital Signs Temp Pulse Resp BP Pulse Ox 12/01/18 04:37 99.1 F 116 16 124/82 12/01/18 02:19 98.8 F 108 15 118/71 12/01/18 02:04 99.1 F 107 16 141/78 97 12/01/18 02:00 99.1 F 107 16 141/78 97 11/30/18 22:38 98.3 F 108 18 134/80 98 11/30/18 20:45 100 11/30/18 18:35 98.4 F 103 17 119/77 100 11/30/18 16:08 97.7 F 96 16 104/67 98 11/30/18 13:53 98.4 F 103 17 119/77 100 11/30/18 13:38 98.1 F 75 16 116/76 96 11/30/18 13:27 99.4 F 75 16 101/64 96 11/30/18 08:00 96 11/30/18 07:04 98.9 F 99 16 110/71 97 Intake and Output 11/30/18 11/30/18 12/01/18 15:59 23:59 07:59 Intake Total 100 / 940 840 / 940 0 / 0 Output Total 400 / 400 Balance 100 / 540 440 / 540 0 / 0 Intake: IV Fluids 100 / 100 Ofirmev 1,000 mg/100 ml 1,000 100 / 100 mg In 100 ml @ 400 mls/hr IVPB Q6HR PRN Rx#:[id number] Oral 840 / 840 Blood Product 0 / 0 0 / 0 Rbcs Leuko Poor As-1 Unit 0 / 0 [id number] Rbcs Leuko Poor As-1 Unit 0 / 0 [id number] Output: Urine 400 / 400 Other: Meal Dinner Percent of Meal Consumed 0% # Voids 1 1 Weight 102.1 kg Patient Weight 12/01/18 23:59 Weight 102.1 kg - Labs CBC & BMP: 11/30/18 04:16 11/30/18 04:16 Labs: Abnormal lab results WBC 11.7 K/mcL (4.3-11.1) H 11/30/18 04:16 RBC 2.21 M/mcL (3.82-4.97) L 11/30/18 04:16 Hgb 7.2 g/dL (11.5-15.4) L D 11/30/18 04:16 Hct 21.9 % (35.3-44.9) L 11/30/18 04:16 9.6 K/mcL (1.6-8.9) H 11/29/18 06:34 1.5 K/mcL (0.0-1.3) H 11/29/18 06:34 APTT 40.5 Seconds (26.0-36.0) H 11/28/18 11:55 Sodium 133 mEq/L (136-145) L 11/30/18 04:16 Chloride 96 mEq/L (98-107) L 11/30/18 04:16 Carbon Dioxide 31 mEq/L (23-29) H 11/30/18 04:16 0.59 mg/dL (0.60-1.20) L 11/30/18 04:16 Glucose 108 mg/dL (70-105) H 11/30/18 04:16 276 (280-300) L 11/30/18 04:16 Crossmatch See Detail 11/30/18 07:25 Consult Discharge Plan - Plan Referrals: Temo Smith, [Primary Care Provider] -
[2018-12-01] MEDS: *HR* Enoxaparin 30 MG/0.3 ML SYRINGE SQ SCH ×2 (07:28→16:57)
[2018-12-01] MEDS: Gabapentin 400 MG CAPSULE PO SCH ×3 (08:15→20:52)
[2018-12-01] MEDS: Multivit/Ca/Min/Fe/FA 1 TAB TABLET PO SCH (08:15)
[2018-12-01] MEDS: ALPRAZolam 1 MG TABLET PO SCH ×3 (08:15→20:53)
[2018-12-01] MEDS: Ascorbic Acid 500 MG TABLET PO SCH ×2 (08:16→16:56)
[2018-12-01] MEDS: Folic Acid 1 MG TABLET PO SCH (08:16)
[2018-12-01] MEDS: *HR* OxyCODONE Immed Rel 5 MG TABLET PO PRN ×4 (08:16→22:35)
[2018-12-01] MEDS: Cholecalciferol (D-3) 1,000 UNIT TABLET PO SCH (08:16)
[2018-12-01] MEDS: sulfaSALAzine 500 MG TABLET PO SCH (08:16)
[2018-12-01] MEDS: Famotidine 20 MG TABLET PO SCH ×2 (08:16→20:53)
[2018-12-01 09:05] LABS: Hematocrit 25.7 % (35.3-44.9); Hemoglobin 8.6 g/dL (11.5-15.4)
[2018-12-01] MEDS: Acetaminophen IV 1,000 MG/100 ML INFUS..BTL IVPB PRN (11:38)
[2018-12-01] MEDS ORDERED: tiZANidine 4 MG TABLET PO PRN (12:32)
--- NOTE | 2018-12-01 14:01 | Event Note ---
Date of Encounter: 12/01/18 Time of Encounter: 12:20 PCR - POD#3 s/p B/L TKR robotic 11/28/18 Patient seen at bedside. A&O x 3 Afebrile, vital signs stable. dressings had minimal bleeding visible. no calf tenderness to palpation, good dorsiflexion of foot, sensation intact distally. Labs reviewed. H/H - 8.6/25.7 - improved, received 2 units RBC transfusion 11/30 Pain control: inadequate, describes tightness in both legs. will add lidocaine patch and muscle relaxer. Do not suspect dvt at this time as pain is anywhere I touch on upper and lower legs equally bilaterally. If no improvement after addition of muscle relaxer then will consider doppler. Patient only partially participating in therapy due to her stating pain is too great. Discussed with her again the importance of getting up and moving should actually help with the stiffness and thus pain. Patient states she will try to participate this afternoon. All questions and concerns addressed. Educated on use of incentive spirometer. Encouraged ambulation and proper hydration. Patient educated on post-operative restrictions and post-operative care. Assessment and plan: Continue with postoperative care Discharge plan: therapy recommending ECF and patient agreeable to this, pending auth
[2018-12-01] MEDS: Celecoxib 100 MG CAPSULE PO SCH ×2 (14:35→20:52)
--- NOTE | 2018-12-01 18:15 | Electrocardiograph Report ---
[place] [id number] Test Date: 2018-11-28 Pat Name: Milli Bveerly Department: 114 Room: [facility] Gender: F Neurophysiology Tech: DEVONTE : 1970 Requested By: Herbert Deutsch Order Number: [id number] Reading MD: Karlee Barnes Measurements Intervals [place] Rate: 109 P: 32 VT: 143 QRS: 20 QRSD: 96 T: 4 QT: 332 QTc: 396 Interpretive Statements SINUS TACHYCARDIA LEFT ATRIAL ENLARGEMENT NONSPECIFIC T-WAVE ABNORMALITY Electronically Signed On 12-01-2018 18:13:26 EDT by Karlee Barnes
[2018-12-01] MEDS: Ringers Solution, Lactated 1,000 ML IVC SCH ×3 (19:55→20:53)
[2018-12-02] MEDS: *HR* Promethazine 25 MG/ML VIAL IVP PRN (00:24)
[2018-12-02] MEDS: Temazepam 15 MG CAPSULE PO PRN (01:41)
[2018-12-02 03:03] LABS: Hematocrit 26.2 % (35.3-44.9); Hemoglobin 8.7 g/dL (11.5-15.4)
[2018-12-02] MEDS: *HR* Enoxaparin 30 MG/0.3 ML SYRINGE SQ SCH ×2 (05:45→18:32)
[2018-12-02] MEDS: ALPRAZolam 1 MG TABLET PO SCH ×2 (07:59→14:49)
[2018-12-02] MEDS: Celecoxib 100 MG CAPSULE PO SCH (07:59)
[2018-12-02] MEDS: Gabapentin 400 MG CAPSULE PO SCH ×2 (07:59→14:49)
[2018-12-02] MEDS: Cholecalciferol (D-3) 1,000 UNIT TABLET PO SCH (08:00)
[2018-12-02] MEDS: *HR* OxyCODONE Immed Rel 5 MG TABLET PO PRN ×3 (08:00→20:39)
[2018-12-02] MEDS: Folic Acid 1 MG TABLET PO SCH (08:00)
[2018-12-02] MEDS: sulfaSALAzine 500 MG TABLET PO SCH (08:00)
[2018-12-02] MEDS: Multivit/Ca/Min/Fe/FA 1 TAB TABLET PO SCH (08:00)
[2018-12-02] MEDS: Ascorbic Acid 500 MG TABLET PO SCH ×2 (08:00→18:32)
[2018-12-02] MEDS: Famotidine 20 MG TABLET PO SCH (08:00)
[2018-12-02] MEDS ORDERED: Lisinopril 20 MG TABLET PO SCH (09:00)
--- NOTE | 2018-12-02 11:55 | Orthopedics Progress Note ---
Date of Encounter: 12/02/18 Time of Encounter: 12:25 - Assessment and Plan (1) Status post total bilateral knee replacement Status: Acute (2) Rheumatoid arthritis Status: Chronic Qualifiers: Rheumatoid arthritis location: unspecified site Rheumatoid factor presence: with rheumatoid factor Qualified Code(s): M05.9 - Rheumatoid arthritis with rheumatoid factor, unspecified (3) Osteoarthritis of knees, bilateral Status: Chronic Qualifiers: Osteoarthritis type: primary Qualified Code(s): M17.0 - Bilateral primary osteoarthritis of knee (4) Acute blood loss anemia Status: Acute (5) Recently quit using tobacco Status: Acute (6) Depression with anxiety Status: Chronic (7) GERD (gastroesophageal reflux disease) Status: Chronic Qualifiers: Esophagitis presence: esophagitis presence not specified Qualified Code(s): K21.9 - Gastro-esophageal reflux disease without esophagitis (8) History of seizures Status: Chronic (9) Obesity (BMI 30-39.9) Status: Chronic Subjective Principal diagnosis: s/p B/L total knees Interval history: PCR - POD#4 s/p B/L TKR robotic 11/28/18 Patient seen at bedside. A&O x 3 Afebrile, vital signs stable. Dressings have no bleeding visible. no calf tenderness to palpation, good dorsiflexion of foot, sensation intact distally. Labs reviewed. H/H - improved, received 2 units RBC transfusion 11/30 Pain control: more adequate today though patient states nothing really relieving the pain - states it is in her bilateral anterior knees. Lidocaine patch and muscle relaxer. Do not suspect dvt at this time - no significant calf tenderness, warmth or erythema. Patient only partially participating in therapy due to her stating pain is too great. Discussed with her again the importance of getting up and moving should actually help with the stiffness and thus pain. Patient states she will try to participate this afternoon. All questions and concerns addressed. Educated on use of incentive spirometer. Encouraged ambulation and proper hydration. Patient educated on post-operative restrictions and post-operative care. Assessment and plan: Continue with postoperative care Discharge plan: auth obtained today, discharge to [facility]. Objective Vital signs: Vital Signs Temp Pulse Resp BP Pulse Ox 12/02/18 10:22 98.4 F 97 18 108/58 92 12/02/18 06:30 97.3 F L 105 18 141/76 98 12/01/18 22:37 98.6 F 93 18 118/73 100 12/01/18 20:54 100 12/01/18 18:47 98.6 F 101 17 120/65 98 12/01/18 14:36 98.4 F 99 16 128/80 93 Intake and Output 12/01/18 12/02/18 12/02/18 23:59 07:59 15:59 Intake Total 120 / 120 Balance 120 / 120 Intake: Oral 120 / 120 Other: Meal Breakfast Percent of Meal Consumed 5% # Voids 1 1 Weight 102.1 kg Patient Weight 12/02/18 23:59 Weight 102.1 kg - Labs CBC & BMP: 12/02/18 14:02 11/30/18 04:16 Labs: Abnormal lab results WBC 11.7 K/mcL (4.3-11.1) H 11/30/18 04:16 RBC 2.21 M/mcL (3.82-4.97) L 11/30/18 04:16 Hgb 8.7 g/dL (11.5-15.4) L 12/02/18 02:43 Hct 26.2 % (35.3-44.9) L 12/02/18 02:43 9.6 K/mcL (1.6-8.9) H 11/29/18 06:34 1.5 K/mcL (0.0-1.3) H 11/29/18 06:34 APTT 40.5 Seconds (26.0-36.0) H 11/28/18 11:55 Sodium 133 mEq/L (136-145) L 11/30/18 04:16 Chloride 96 mEq/L (98-107) L 11/30/18 04:16 Carbon Dioxide 31 mEq/L (23-29) H 11/30/18 04:16 0.59 mg/dL (0.60-1.20) L 11/30/18 04:16 Glucose 108 mg/dL (70-105) H 11/30/18 04:16 276 (280-300) L 11/30/18 04:16 Crossmatch See Detail 11/30/18 07:25 Consult Discharge Plan - Plan Referrals: Temo Smith, [Primary Care Provider] -
[2018-12-02] MEDS: HYDROcodone BIT/Homatropine 5 MG TABLET PO PRN (13:22)
[2018-12-02 14:47] LABS: Hematocrit 29.2 % (35.3-44.9); Hemoglobin 9.6 g/dL (11.5-15.4)
[2018-12-02] MEDS: Ondansetron 4 MG/2 ML VIAL IVP PRN (17:31)
[2018-12-02 20:45] VITALS: BP 108/64
== END 2018-12-02 21:02 | DRG 462 ==
LOC: SAMDAY 07:16 → 3NENU 12:50
PROVIDERS: ADMIT Orthopaedic Surgery; ATTEND Orthopaedic Surgery